=== PATIENT | male | born 1940 | race Caucasian/White ===

== ENCOUNTER 2017-07-02 14:19 | Emergency (ER) | payer MEDICARE, BC ==
--- NOTE | 2017-07-02 14:32 | EDM.PDOC ---
ED HPI GENERAL MEDICAL PROBLEM - General Chief Complaint: Chest Pain Stated Complaint: left arm pain Time Seen by Provider: 07/02/17 14:20 Source of Information: Reports: Patient, RN History Limitations: Reports: No Limitations - History of Present Illness INITIAL COMMENTS - FREE TEXT/NARRATIVE: 77 yr male presents with left arm pain, weakness and some nausea. He was fishing today and holding his fishing pole and noted this pain to the left arm. States hx of a-fib and take Metoprolol and xarelto and pravastatin. States he ate out last night and doesn't know if he had something to eat that upset his stomach. States he hasn't ate today, but has been drinking water and did have 2 bottles of water today. Pt is alert, talkative and no acute distress. States he does come up here to [place] about 3x/year. He used to work with [employer] and is retired now. Rates his pain a "1" and states this is the best he has felt today. Pain was a 3/4 at its worse. Will do work-up for cardiac with EKG, tropnons, and CBC and CMP. Vital signs are stable and EKG shows Sinus rhythm with aberrant contraction. Onset: Today Onset Date: 07/02/17 Onset Time: 10:30 Duration: Improving Location: Reports: Upper Extremity, Left Severity: Mild Associated Symptoms: Reports: Other (pain into rib cage, side and back) Left Shoulder Pain Score (Numeric/FACES): 1 - Related Data Allergies Allergy/AdvReac Type Severity Reaction Status Date / Time cat dander Allergy Itching Verified 07/02/17 14:44 Home Meds: Home Meds Metoprolol Tartrate 25 mg PO BID 07/02/17 [History] Pravastatin [Pravachol] 40 mg PO BEDTIME 07/02/17 [History] Rivaroxaban [Xarelto] 20 mg PO DAILY 07/02/17 [History] ED ROS GENERAL - Review of Systems Review Of Systems: See Below Constitutional: Reports: Weakness HEENT: Reports: Glasses Respiratory: Reports: No Symptoms Cardiovascular: Reports: Other (hx of a-fib and is taking metoprolol and xarelto.) GI/Abdominal: Reports: Nausea. Denies: Abdominal Pain, Decreased Appetite Musculoskeletal: Reports: Arm Pain (left arm pain) Skin: Reports: No Symptoms Neurological: Reports: Weakness ED EXAM, GENERAL - Physical Exam Exam: See Below Exam Limited By: No Limitations General Appearance: Alert, No Apparent Distress Ears: Hearing Grossly Normal Throat/Mouth: No Airway Compromise Head: Atraumatic, Normocephalic Neck: Supple, Non-Tender Respiratory/Chest: No Respiratory Distress, Lungs Clear, Normal Breath Sounds, Chest Non-Tender Cardiovascular: Normal Peripheral Pulses, Regular Rate, Rhythm, No Edema Course - Vital Signs Last Recorded V/S: Last Vital Signs Temp 98.9 F 07/02/17 14:20 Pulse 64 07/02/17 14:55 Resp 18 07/02/17 14:55 BP 122/63 07/02/17 15:36 Pulse Ox 97 07/02/17 14:34 - Orders/Labs/Meds Orders: Active Orders 24 hr Category Date Time Status Cardiac Monitoring [RC] .As Directed Care 07/02/17 14:33 Active EKG Documentation Completion [RC] ASDIRECTED Care 07/02/17 14:34 Active Saline Lock Insert [OM.PC] Stat Oth 07/02/17 14:33 Ordered Labs: Laboratory Tests 07/02/17 07/02/17 Range/Units 14:40 14:40 WBC 6.7 (4.0-11.0) K/uL RBC 4.36 L (4.50-6.50) M/uL Hgb 13.1 (13.0-18.0) g/dL Hct 38.1 L (40.0-54.0) % MCV 87 (76-96) fL MCH 30.0 (27.0-32.0) pg MCHC 34.4 (31.0-35.0) g/dL RDW 12.9 (11.0-16.0) % Plt Count 163 (150-400) K/uL MPV 9.7 (6.0-10.0) fL Neut % (Auto) 84.8 H (45.0-70.0) % Lymph % (Auto) 6.7 L (20.0-40.0) % [place] % (Auto) 7.8 (3.0-10.0) % Eos % (Auto) 0.6 L (1.0-5.0) % Baso % (Auto) 0.1 (0.0-0.5) % Neut # (Auto) 5.67 (2.00-7.50) K/uL Lymph # (Auto) 0.45 L (1.50-4.00) K/uL [place] # (Auto) 0.52 (0.20-0.80) K/uL Eos # (Auto) 0.04 (0.04-0.40) K/uL Baso # (Auto) 0.01 L (0.02-0.10) K/uL Sodium 141 (136-145) mmol/L Potassium 3.9 (3.5-5.1) mmol/L Chloride 103 (98-107) mmol/L Carbon Dioxide 27.0 (21.0-32.0) mmol/L Anion Gap 14.9 (5.0-15.0) mmol/L BUN 20 (8-26) mg/dL Creatinine 0.98 (0.70-1.30) mg/dL Est Cr Clr Drug Dosing 65.13 mL/min Estimated GFR (MDRD) > 60 (>60) MLS/MIN BUN/Creatinine Ratio 20.4 (6-25) Glucose 108 H (74-100) mg/dL Calcium 8.7 (8.5-10.1) mg/dL Total Bilirubin 1.0 (0.0-1.0) mg/dL AST 29 (15-37) U/L ALT 32 (12-78) U/L Alkaline Phosphatase 56 (46-116) U/L Troponin I < 0.017 (0.000-0.060) ng/mL Total Protein 7.2 (6.4-8.2) g/dL Albumin 3.8 (3.4-5.0) g/dL Globulin 3.4 (2.2-4.2) g/dL Albumin/Globulin Ratio 1.1 (0.8-2.0) Meds: Medications Discontinued Medications Generic Name Dose Route Start Last Admin Trade Name Freq PRN Reason Stop Dose Admin Nitroglycerin 0.4 mg 07/02/17 15:35 07/02/17 15:36 Nitrostat SL 07/02/17 15:36 0.4 mg ONETIME ONE Administration Sodium Chloride 10 ml 07/02/17 14:33 Saline Flush FLUSH ASDIRECTED PRN Keep Vein Open - Re-Assessments/Exams Free Text/Narrative Re-Assessment/Exam: 07/02/17 16:52 LE Pt has remained stable with vital signs stable and no return of chest pain. States some pain to left shoulder as standing and moving in ER. No increase in pain with ambulation and no shortness of breath. Consulted with Dr Elliott and Dr Elliott assessed pt and reviewed EKG with pt. Lab results for troponins are negative, 4 hour after the initial chest pain and arm pain started. Nitro, 1 tablet sl given while in ER under advisement of Dr Elliott and pain resolved. With EKG of fasicular block and resolution of pain with nitro, pain may be related to angina. Recommend F/U with PCP upon return to home and results of today's visit will be sent with pt. Will send nitro home with pt and instructed to take nitro, if return of chest pain. Reviewed side effects of medication and if pain returns tonight and worse, return to ER for further assessment. Pt states understanding. Continue medications as at home. Pt discharged ambulatory with friend, who will drive pt to [facility] for evening. Departure - Departure Time of Disposition: 16:43 Disposition: Home, Self-Care 01 Condition: Good Clinical Impression: Chest pain Instructions: Nonspecific Chest Pain, [id number], Angina Pectoris Referrals: PCP,None [Primary Care Provider] - Forms: ED Department Discharge Care Plan Goals: Follow up with primary provider as needed. May take 1 nitro if chest pain returns. If chest pain continues return to ER. - Problem List & Annotations (1) Chest pain SNOMED Code(s): 65993190 Code(s): R07.9 - CHEST PAIN, UNSPECIFIED Status: Acute - Problem List Review Problem List Initiated/Reviewed/Updated: Yes - My Orders Last 24 Hours: My Active Orders 07/02/17 14:33 Cardiac Monitoring [RC] .As Directed Saline Lock Insert [OM.PC] Stat 07/02/17 14:34 EKG Documentation Completion [RC] ASDIRECTED - Assessment/Plan Last 24 Hours: My Active Orders 07/02/17 14:33 Cardiac Monitoring [RC] .As Directed Saline Lock Insert [OM.PC] Stat 07/02/17 14:34 EKG Documentation Completion [RC] ASDIRECTED Assessment:: chest pain History per pt: Hx of hypertension, controlled with medication. Hx of atrial fibrillation hx of hyperlipidemia, controlled with medication. Plan: F/U with PCP upon return to home. Home medications as prescribed. Fluids and diet as tolerated. Nitro 1 tablet SL if chest pain. Return to ER if pain increases despite use of nitro.
[2017-07-02] MEDS ORDERED: Sodium Chloride 0.9% 10 ML Syringe FLUSH PRN (14:33)
[2017-07-02] MEDS: Nitroglycerin 0.4 MG Tab.SL SL ONE (15:36)
[2017-07-02 15:37] VITALS: BP 122/63
== END 2017-07-02 16:43 | disposition home or self-care (01) ==
LOC: LB.ED 14:19
DX: R07.9 Chest pain, unspecified (principal); I48.91 Unspecified atrial fibrillation; Z79.899 Other long term (current) drug therapy; Z91.09 Other allergy status, other than to drugs and biological substances
CPT/HCPCS: 36415; 80053; 84484; 85025; 93005; 99284; 99285-25